=== PATIENT | male | born 1990 | race Caucasian/White ===

== ENCOUNTER 2021-12-22 08:11 | Emergency (ER) | payer SELFPAY ==
[2021-12-22] MEDS ORDERED: Iopamidol 370 76% 100 ML VIAL FS ONE (08:12)
[2021-12-22] MEDS ORDERED: methylPREDNISolone Sod Succ/PF 125 MG/2 ML VIAL ONE (08:40)
[2021-12-22] MEDS ORDERED: Ketorolac Tromethamine 30 MG/ML VIAL ONE (08:40)
[2021-12-22] MEDS ORDERED: Enoxaparin Sodium 100 MG/ML SYRINGE ONE (09:34)
[2021-12-22] MEDS ORDERED: Pantoprazole 40 MG VIAL ONE (09:56)
[2021-12-22] MEDS ORDERED: Apixaban 5 MG TAB PO SCH (10:45)
== END 2021-12-22 10:52 | disposition home or self-care (01) ==
LOC: BURERS 08:11
DX: I26.99 Other pulmonary embolism without acute cor pulmonale (principal); L27.0 Generalized skin eruption due to drugs and medicaments taken internally; E11.9 Type 2 diabetes mellitus without complications; Z87.891 Personal history of nicotine dependence
CPT/HCPCS: 36415; 71275; 80053; 83090; 84484; 85025; 85240; 85300; 85303; 85305; 85307; 85379; 85598; 85610; 85730; 86140; 86147; 93005; 96372; 96374; 96375; C9113; J1650; J1885; J2930; Q9967

== ENCOUNTER 2022-02-05 19:00 | Emergency (ER) | payer SELFPAY | END 2022-02-05 19:44 | disposition left against medical advice (07) | LOC: BURERS 19:00 | DX: Z53.21 Procedure and treatment not carried out due to patient leaving prior to being seen by health care provider (principal) ==

== ENCOUNTER 2022-06-24 07:29 | Emergency (ER) | payer SELFPAY ==
[2022-06-24] MEDS ORDERED: Iopamidol 370 76% 100 ML VIAL FS ONE (07:30)
[2022-06-24 08:08] LABS: #Basophils 0.1 thou/uL (0.0-0.2); #Eosinphils 0.1 thou/uL (0.0-0.7); #Lymphocytes 2.2 thou/uL (1.20-3.40); #Monocytes 0.2 thou/uL (0.11-0.59); #Neutrophils 2.7 thou/uL (1.40-6.50); %Basophils 1.9 % (0.0-1.0); %Lymphocytes 41.1 % (21.0-51.0); %Monocytes 4.4 % (0.0-10.0); %Neutrophils 50.6 % (42.0-75.0); Mean Corpuscular HGB CONC 33.3 g/dL (32.0-36.0); Mean Corpuscular Hemoglobin 28.2 pg (27.0-31.0); Mean Corpuscular Volume 84.8 fL (78.0-98.0); Mean Platelet Volume 5.8 fL (7.4-10.4); Platelet Count 236 thou/uL (130-400); RBC Distribution Width 18.7 % (11.5-14.5); Red Blood Cell (RBC) Count 4.97 mill/uL (4.70-6.10); White Blood Cell (WBC) Count 5.3 thou/uL (4.8-10.8)
[2022-06-24 08:15] LABS: ALT (SGPT) 93 U/L (8-55); AST (SGOT) 169 U/L (5-34); Albumin 4.3 g/dL (3.5-5.0); Alkaline Phosphatase 128 U/L (40-110); Anion Gap 18 mmol/L (10-20); BUN (Urea Nitrogen) 5 mg/dL (8.9-20.6); Bilirubin, Total 0.7 mg/dL (0.2-1.2); Calc. Creatinine Clearance 0 mL/min (70-130); Calcium 8.9 mg/dL (7.8-10.44); Carbon Dioxide 24 mmol/L (22-29); Chloride 102 mmol/L (98-107); Estimated GFR 121; Glucose 94 mg/dL (70-105); Lipase 282 U/L (8-78); Potassium 3.9 mmol/L (3.5-5.1); Protein, Total 7.3 g/dL (6.0-8.3); Sodium 140 mmol/L (136-145)
[2022-06-24 08:24] LABS: Anisocytosis SLIGHT = 6-15 cells (100X) (0-5/hpf); MDiff Complete? YES; Platelet Morphology Comment Appears Adequate
[2022-06-24] MEDS ORDERED: Diazepam 10 MG/2 ML SYRINGE ONE (08:26)
[2022-06-24] MEDS ORDERED: Multivit, Adult Inj 10 ML VIAL ONE (08:26)
[2022-06-24] MEDS ORDERED: Thiamine 100 MG TAB ONE (08:26)
[2022-06-24] MEDS ORDERED: Thiamine HCl 200 MG/2 ML VIAL ONE (08:28)
[2022-06-24] MEDS ORDERED: Morphine 4 MG/ML VIAL ONE ×2 (09:16→11:38)
[2022-06-24] MEDS ORDERED: Ondansetron PF 4 MG/2 ML Vial ONE (09:19)
[2022-06-24] MEDS ORDERED: Promethazine HCl 25 MG/ML VIAL ONE (09:20)
[2022-06-24 10:17] LABS: Acetaminophen Less than 10.0 mcg/mL (10.0-30.0); Alcohol 62 mg/dL (Less than 10); Salicylate Less than 8.0 mg/dL (15.0-30.0)
[2022-06-24 11:42] LABS: Bilirubin Negative (Negative); Blood, Urine Negative (Negative); Clarity Clear (Clear); Glucose, Urine (Dipstick) Negative (Negative); Ketone, Urine Trace mg/dL (Negative); Leukocyte Negative (Negative); Nitrite Negative (Negative); Protein, Urine (Dipstick) Negative (Neg-Trace); Specific Gravity, Urine 1.015 (1.005-1.030); Urobilinogen 0.2 mg/dL (Less than 2)
[2022-06-24 11:54] LABS: SARS-CoV-2 NAA Rapid Test Not Detected (NotDetected)
== END 2022-06-24 13:42 | disposition short-term general hospital (02) ==
LOC: BURERS 07:29
DX: K52.9 Noninfective gastroenteritis and colitis, unspecified (principal); K85.20 Alcohol induced acute pancreatitis without necrosis or infection; F10.20 Alcohol dependence, uncomplicated; R74.01 Elevation of levels of liver transaminase levels; E11.9 Type 2 diabetes mellitus without complications; Z20.822 Contact with and (suspected) exposure to COVID-19; Z87.891 Personal history of nicotine dependence
CPT/HCPCS: 74177; 80053; 80307; 81003; 83690; 85025; 87804; 96365; 96366; 96375; 96376; J2270; J2405; J2550; J3360; J3411; Q9967; U0002